=== PATIENT | female | born 1955 | race Caucasian/White ===

== ENCOUNTER → 2018-12-11 | Outpatient (CLI) | payer OTHER ==
[~2018-12-11] MED LIST: ASPIRIN325 PO; COLACE100 MG PO; NORCO 5-325 TA1 EACH PO; OXYCODONE HCL 55 MG PO; XARELTO10 M1 PO
== END ==
LOC: M.RAD 16:43
DX: M19.072 Primary osteoarthritis, left ankle and foot (principal); M21.612 Bunion of left foot